=== PATIENT | male | born 1950 | race Two or more races ===

== ENCOUNTER → 2019-02-01 | Outpatient (CLI) | payer MEDICARE, OTHER ==
[~2019-02-01] VITALS: Ht 165.1 cm; Wt 80.0 kg
[~2019-02-01] MED LIST: ARIP5TAB8 PO; ASPI-1182 PO; ATOR40TA28 PO; BUSP15 PO; CARV6 PO; DUTA.5 PO; FAMO20 PO; FERR-89 PO; FLUT16H NASAL; FOLI1 PO; FURO20 PO; GABA-531 PO; INSNOV SQ; INSU100V12 SQ; LIDOCAINE 2% 5 ML JELLY TP ONE; LINA5TAB PO; LOSA25TA41 PO; MACR100 PO; METF-445 PO; MOME17N NASAL; RANI150T7 PO; SPIR25 PO; TRAZ-252 PO
[2019-02-01 12:02] VITALS: BP 108/64
== END | disposition home or self-care (01) ==
LOC: HBOWC 11:16
PROVIDERS: ATTEND Surgery Plastic and Reconstructive Surgery
DX: S31.000A Unspecified open wound of lower back and pelvis without penetration into retroperitoneum, initial encounter (principal); X58.XXXA Exposure to other specified factors, initial encounter; Y93.89 Activity, other specified; Y92.89 Other specified places as the place of occurrence of the external cause; Y99.8 Other external cause status
CPT/HCPCS: 11042; G0463

== ENCOUNTER → 2019-02-09 | Outpatient (CLI) | payer MEDICARE, OTHER ==
[~2019-02-09] MED LIST changes: -LIDOCAINE 2% 5 ML JELLY TP ONE
[2019-02-09 11:10] VITALS: BP 146/62
== END | disposition home or self-care (01) ==
LOC: HBOWC 11:08
PROVIDERS: ATTEND Emergency Medicine
DX: L89.153 Pressure ulcer of sacral region, stage 3 (principal); R32 Unspecified urinary incontinence; G82.20 Paraplegia, unspecified; M62.562 Muscle wasting and atrophy, not elsewhere classified, left lower leg; M62.561 Muscle wasting and atrophy, not elsewhere classified, right lower leg; Z79.82 Long term (current) use of aspirin; Z79.4 Long term (current) use of insulin
CPT/HCPCS: 11042; 84134

== ENCOUNTER → 2019-02-16 | Outpatient (CLI) | payer MEDICARE, OTHER ==
[2019-02-16 11:25] VITALS: BP 144/65
== END | disposition home or self-care (01) ==
LOC: HBOWC 11:12
PROVIDERS: ATTEND Emergency Medicine
DX: S31.000D Unspecified open wound of lower back and pelvis without penetration into retroperitoneum, subsequent encounter (principal); G82.20 Paraplegia, unspecified; Z79.82 Long term (current) use of aspirin; Z79.4 Long term (current) use of insulin; X58.XXXD Exposure to other specified factors, subsequent encounter
CPT/HCPCS: 11042

== ENCOUNTER → 2019-02-22 | Outpatient (CLI) | payer MEDICARE, OTHER ==
[~2019-02-22] MED LIST changes: +LIDOCAINE 2% 5 ML JELLY TP ONE
[2019-02-22 11:17] VITALS: BP 114/50
== END | disposition home or self-care (01) ==
LOC: HBOWC 10:59
PROVIDERS: ATTEND Surgery Plastic and Reconstructive Surgery
DX: S31.000D Unspecified open wound of lower back and pelvis without penetration into retroperitoneum, subsequent encounter (principal); G82.20 Paraplegia, unspecified; Z79.82 Long term (current) use of aspirin; Z79.4 Long term (current) use of insulin; X58.XXXD Exposure to other specified factors, subsequent encounter
CPT/HCPCS: 11043; 11046

== ENCOUNTER → 2019-03-03 | Outpatient (CLI) | payer MEDICARE, OTHER ==
[2019-03-03 11:17] VITALS: BP 118/66
== END | disposition home or self-care (01) ==
LOC: HBOWC 10:23
PROVIDERS: ATTEND Internal Medicine
DX: L97.512 Non-pressure chronic ulcer of other part of right foot with fat layer exposed (principal); L89.153 Pressure ulcer of sacral region, stage 3; G82.20 Paraplegia, unspecified; L89.323 Pressure ulcer of left buttock, stage 3; Z79.82 Long term (current) use of aspirin; Z79.4 Long term (current) use of insulin
CPT/HCPCS: 11042

== ENCOUNTER → 2019-03-10 | Outpatient (CLI) | payer MEDICARE, OTHER ==
[~2019-03-10] MED LIST changes: -LIDOCAINE 2% 5 ML JELLY TP ONE
[2019-03-10 10:20] VITALS: BP 139/70
== END | disposition home or self-care (01) ==
LOC: HBOWC 10:14
PROVIDERS: ATTEND Internal Medicine
DX: E11.622 Type 2 diabetes mellitus with other skin ulcer (principal); L89.153 Pressure ulcer of sacral region, stage 3; L89.323 Pressure ulcer of left buttock, stage 3; L98.412 Non-pressure chronic ulcer of buttock with fat layer exposed; L98.492 Non-pressure chronic ulcer of skin of other sites with fat layer exposed; E11.621 Type 2 diabetes mellitus with foot ulcer; L97.512 Non-pressure chronic ulcer of other part of right foot with fat layer exposed; R32 Unspecified urinary incontinence; M62.562 Muscle wasting and atrophy, not elsewhere classified, left lower leg; M62.561 Muscle wasting and atrophy, not elsewhere classified, right lower leg; G82.20 Paraplegia, unspecified; Z79.82 Long term (current) use of aspirin; Z79.4 Long term (current) use of insulin
CPT/HCPCS: 11042; 11045

== ENCOUNTER → 2019-03-24 | Outpatient (CLI) | payer MEDICARE, OTHER ==
[~2019-03-24] MED LIST changes: +LIDOCAINE 2% 5 ML JELLY TP ONE
[2019-03-24 11:05] VITALS: BP 119/65
== END | disposition home or self-care (01) ==
LOC: HBOWC 10:26
PROVIDERS: ATTEND Internal Medicine
DX: E11.622 Type 2 diabetes mellitus with other skin ulcer (principal); L89.153 Pressure ulcer of sacral region, stage 3; L89.323 Pressure ulcer of left buttock, stage 3; L98.412 Non-pressure chronic ulcer of buttock with fat layer exposed; L98.492 Non-pressure chronic ulcer of skin of other sites with fat layer exposed; E11.621 Type 2 diabetes mellitus with foot ulcer; L97.511 Non-pressure chronic ulcer of other part of right foot limited to breakdown of skin; R32 Unspecified urinary incontinence; L90.9 Atrophic disorder of skin, unspecified; G82.20 Paraplegia, unspecified; Z79.4 Long term (current) use of insulin; Z79.82 Long term (current) use of aspirin
CPT/HCPCS: 11042; 11045

== ENCOUNTER → 2019-03-29 | Outpatient (CLI) | payer MEDICARE, OTHER ==
[~2019-03-29] MED LIST changes: -LIDOCAINE 2% 5 ML JELLY TP ONE
[2019-03-29 12:07] VITALS: BP 138/78
== END | disposition home or self-care (01) ==
LOC: HBOWC 10:56
PROVIDERS: ATTEND Surgery Plastic and Reconstructive Surgery
DX: E11.622 Type 2 diabetes mellitus with other skin ulcer (principal); L89.153 Pressure ulcer of sacral region, stage 3; L89.323 Pressure ulcer of left buttock, stage 3; L98.412 Non-pressure chronic ulcer of buttock with fat layer exposed; L98.492 Non-pressure chronic ulcer of skin of other sites with fat layer exposed; E11.621 Type 2 diabetes mellitus with foot ulcer; L97.511 Non-pressure chronic ulcer of other part of right foot limited to breakdown of skin; R32 Unspecified urinary incontinence; L90.9 Atrophic disorder of skin, unspecified; G82.20 Paraplegia, unspecified; Z79.4 Long term (current) use of insulin; Z79.82 Long term (current) use of aspirin
CPT/HCPCS: 11042; 11045

== ENCOUNTER → 2019-04-05 | Outpatient (CLI) | payer MEDICARE, OTHER ==
[~2019-04-05] MED LIST changes: +LIDOCAINE 4% 50 ML SOLUTION TP ONE
[2019-04-05 11:59] VITALS: BP 133/64
== END | disposition home or self-care (01) ==
LOC: HBOWC 11:06
PROVIDERS: ATTEND Surgery Plastic and Reconstructive Surgery
DX: E11.622 Type 2 diabetes mellitus with other skin ulcer (principal); L89.153 Pressure ulcer of sacral region, stage 3; L89.323 Pressure ulcer of left buttock, stage 3; L98.412 Non-pressure chronic ulcer of buttock with fat layer exposed; L98.492 Non-pressure chronic ulcer of skin of other sites with fat layer exposed; E11.621 Type 2 diabetes mellitus with foot ulcer; L97.511 Non-pressure chronic ulcer of other part of right foot limited to breakdown of skin; R32 Unspecified urinary incontinence; L90.9 Atrophic disorder of skin, unspecified; G82.20 Paraplegia, unspecified; Z79.4 Long term (current) use of insulin; Z79.82 Long term (current) use of aspirin
CPT/HCPCS: 11042; 11045; 93970

== ENCOUNTER → 2019-05-03 | Outpatient (CLI) | payer MEDICARE, OTHER ==
[2019-05-03 10:39] VITALS: BP 130/70
== END | disposition home or self-care (01) ==
LOC: HBOWC 09:36
PROVIDERS: ATTEND Surgery Plastic and Reconstructive Surgery
DX: T86.828 Other complications of skin graft (allograft) (autograft) (principal); E11.622 Type 2 diabetes mellitus with other skin ulcer; L89.153 Pressure ulcer of sacral region, stage 3; L98.495 Non-pressure chronic ulcer of skin of other sites with muscle involvement without evidence of necrosis; L89.323 Pressure ulcer of left buttock, stage 3; L98.412 Non-pressure chronic ulcer of buttock with fat layer exposed; E11.621 Type 2 diabetes mellitus with foot ulcer; L97.511 Non-pressure chronic ulcer of other part of right foot limited to breakdown of skin; S91.201D Unspecified open wound of right great toe with damage to nail, subsequent encounter; M62.562 Muscle wasting and atrophy, not elsewhere classified, left lower leg; G82.20 Paraplegia, unspecified; M62.561 Muscle wasting and atrophy, not elsewhere classified, right lower leg; I25.10 Atherosclerotic heart disease of native coronary artery without angina pectoris; E78.00 Pure hypercholesterolemia, unspecified; M19.90 Unspecified osteoarthritis, unspecified site; E66.9 Obesity, unspecified; F32.9 Major depressive disorder, single episode, unspecified; F11.20 Opioid dependence, uncomplicated; Z68.29 Body mass index [BMI] 29.0-29.9, adult; Z95.1 Presence of aortocoronary bypass graft; Z79.4 Long term (current) use of insulin; Z79.82 Long term (current) use of aspirin; X58.XXXD Exposure to other specified factors, subsequent encounter; Y83.2 Surgical operation with anastomosis, bypass or graft as the cause of abnormal reaction of the patient, or of later complication, without mention of misadventure at the time of the procedure
CPT/HCPCS: 11042; 11043

== ENCOUNTER → 2019-05-10 | Outpatient (CLI) | payer MEDICARE, OTHER ==
[~2019-05-10] MED LIST changes: +ACET-2247 PO; +ACET-2247 PR; +ACET650S27 PR; +AMLO10TA7 PO; -ARIP5TAB8 PO; +ASCO500 PO; +ATOR20TA86 PO; +BACL10TA PO; +BACTDSB PO; +BISA10SU11 PR; -FAMO20 PO; +HEPA500018 SQ; +INSLAN SQ; -INSNOV SQ; -INSU100V12 SQ; -LIDOCAINE 4% 50 ML SOLUTION TP ONE; -MACR100 PO; +MOM30 PO; -MOME17N NASAL; +MORP15 PO; +MULT-248 PO; +NITR100C11 PO; +NITR25OR3 PO; +OXYC-530 PO; +TAMS-1 PO; +ZINC220 PO
[2019-05-10 09:00] VITALS: BP 138/64
== END | disposition home or self-care (01) ==
LOC: HBOWC 08:35
PROVIDERS: ATTEND Surgery Plastic and Reconstructive Surgery
DX: T86.828 Other complications of skin graft (allograft) (autograft) (principal); E11.622 Type 2 diabetes mellitus with other skin ulcer; L89.153 Pressure ulcer of sacral region, stage 3; L98.495 Non-pressure chronic ulcer of skin of other sites with muscle involvement without evidence of necrosis; L89.323 Pressure ulcer of left buttock, stage 3; L98.412 Non-pressure chronic ulcer of buttock with fat layer exposed; E11.621 Type 2 diabetes mellitus with foot ulcer; L97.511 Non-pressure chronic ulcer of other part of right foot limited to breakdown of skin; S91.201D Unspecified open wound of right great toe with damage to nail, subsequent encounter; G82.20 Paraplegia, unspecified; M62.561 Muscle wasting and atrophy, not elsewhere classified, right lower leg; I25.10 Atherosclerotic heart disease of native coronary artery without angina pectoris; E78.00 Pure hypercholesterolemia, unspecified; M19.90 Unspecified osteoarthritis, unspecified site; E66.9 Obesity, unspecified; F32.9 Major depressive disorder, single episode, unspecified; F11.20 Opioid dependence, uncomplicated; Z68.29 Body mass index [BMI] 29.0-29.9, adult; Z95.1 Presence of aortocoronary bypass graft; Z79.4 Long term (current) use of insulin; Z79.82 Long term (current) use of aspirin; X58.XXXD Exposure to other specified factors, subsequent encounter; Y83.2 Surgical operation with anastomosis, bypass or graft as the cause of abnormal reaction of the patient, or of later complication, without mention of misadventure at the time of the procedure
CPT/HCPCS: 11043

== ENCOUNTER 2019-05-17 10:25 | Inpatient (IN) | payer MEDICARE, OTHER ==
[~2019-05-17] VITALS: Ht 165.1 cm; Wt 76.0 kg
[~2019-05-17 10:25] MED LIST changes: -ACET650S27 PR; -AMLO10TA7 PO; -ASPI-1182 PO; -ATOR40TA28 PO; -BACL10TA PO; -BUSP15 PO; -DUTA.5 PO; -FERR-89 PO; -FLUT16H NASAL; -FOLI1 PO; -FURO20 PO; -GABA-531 PO; -LINA5TAB PO; -LOSA25TA41 PO; -METF-445 PO; -NITR100C11 PO; -NITR25OR3 PO; -RANI150T7 PO; -SPIR25 PO; -TAMS-1 PO
[2019-05-17 10:57] LABS: BASOPHILS % (AUTO) 0.7 % (0.0-2.0); EOSINOPHILS % (AUTO) 4.3 % (1.0-6.0); HEMATOCRIT 33.7 % (41-53); HEMOGLOBIN 10.9 g/dL (13.5-17.5); LYMPHOCYTES % (AUTO) 22.7 % (22.0-44.0); MEAN CORPUSCULAR HEMOGLOBIN 28.1 pg (26.0-34.0); MEAN CORPUSCULAR HGB CONC 32.2 G/dL (31.0-37.0); MEAN CORPUSCULAR VOLUME 87 fL (80-100); MONOCYTES % (AUTO) 10.9 % (2.0-9.0); NEUTROPHILS # (AUTO) 5.4 K/uL (1.8-7.7); NEUTROPHILS % (AUTO) 61.4 % (40.0-70.0); PLATELET COUNT (AUTO) 320 K/uL (150-450); RED BLOOD CELL COUNT(AUTO) 3.86 MIL/uL (4.50-5.90); RED CELL DISTRIBUTION WIDTH 16.2 % (11.5-14.5)
[2019-05-17] MEDS ORDERED: RINGERS SOLUTION,LACTATED 1,000 ML IV ONE (11:00)
[2019-05-17 11:08] LABS: PROTHROMBIN TIME 10.3 SEC (9.4-11.6)
[2019-05-17] MEDS ORDERED: TAMS-1 PO (11:11)
[2019-05-17] MEDS ORDERED: LOSA25TA41 PO (11:14)
[2019-05-17] MEDS ORDERED: SPIR25 PO (11:14)
[2019-05-17] MEDS ORDERED: AMLO10TA7 PO (11:14)
[2019-05-17] MEDS ORDERED: GABA-531 PO (11:14)
[2019-05-17] MEDS ORDERED: FURO20 PO (11:14)
[2019-05-17] MEDS ORDERED: ASPI-1182 PO (11:14)
[2019-05-17] MEDS ORDERED: METF-445 PO (11:14)
[2019-05-17 11:22] LABS: ANION GAP 9 mmol/L (8-16); CALCIUM, TOTAL 9.4 mg/dL (8.8-10.5); CARBON DIOXIDE 28 mmol/L (22-29); CHLORIDE 100 mmol/L (98-107); CREATININE 0.67 mg/dL (0.60-1.30); GLOMERULAR FILTR. RATE CALC > 60 mL/min (>60); GLUCOSE,RANDOM 99 mg/dL (70-110); POTASSIUM 4.4 mmol/L (3.5-5.1); SODIUM SERUM 137 mmol/L (136-145); UREA NITROGEN, BLOOD 21 mg/dL (7-18)
[2019-05-17] MEDS ORDERED: NITR25OR3 PO (11:25)
[2019-05-17] MEDS ORDERED: DUTA.5 PO (11:25)
[2019-05-17] MEDS ORDERED: FOLI1 PO (11:25)
[2019-05-17] MEDS ORDERED: LINA5TAB PO (11:25)
[2019-05-17] MEDS ORDERED: FERR-89 PO (11:25)
[2019-05-17] MEDS ORDERED: RANI150T7 PO (11:25)
[2019-05-17] MEDS ORDERED: FLUT16H NASAL (11:25)
[2019-05-17] MEDS ORDERED: BACL10TA PO (11:25)
[2019-05-17] MEDS ORDERED: BUSP15 PO (11:25)
[2019-05-17 11:26] LABS: ALANINE AMINOTRANSFERASE 16 U/L (12-78); ALBUMIN 2.8 g/dL (3.4-5.0); ALKALINE PHOSPHATASE 128 U/L (46-116); ASPARTATE AMINOTRANSFERASE 17 U/L (15-37); BILIRUBIN,TOTAL 0.3 mg/dL (0.1-1.0); TOTAL PROTEIN, SERUM 7.2 g/dL (6.4-8.2)
[2019-05-17] MEDS ORDERED: NITR100C11 PO (14:04)
[2019-05-17] MEDS ORDERED: ACET650S27 PR (14:04)
[2019-05-17] MEDS ORDERED: ATOR40TA28 PO (14:04)
[2019-05-17] MEDS ORDERED: FentaNYL CITRATE-PF 100 MCG/2 ML VIAL IVP PRN (14:45)
[2019-05-17] MEDS ORDERED: HYDROmorphone 2 MG/ML SYRINGE IVP PRN (14:45)
[2019-05-17 17:41] VITALS: BP 134/74
[2019-05-17] MEDS: OxyCODONE HCL/ACETAMINOPHEN 5-325 MG TABLET PO SCH (18:55)
[2019-05-17 19:55] VITALS: BP 132/72
[2019-05-17] MEDS: MORPHINE SULFATE 2 MG/ML SYRINGE IVP PRN (20:40)
[2019-05-17 22:14] LABS: BASOPHILS % (AUTO) 0.7 % (0.0-2.0); EOSINOPHILS % (AUTO) 0.8 % (1.0-6.0); HEMATOCRIT 28.3 % (41-53); HEMOGLOBIN 9.1 g/dL (13.5-17.5); LYMPHOCYTES # (AUTO) 1.5 K/uL (1.0-4.8); MEAN CORPUSCULAR HEMOGLOBIN 28.2 pg (26.0-34.0); MEAN CORPUSCULAR HGB CONC 32.1 G/dL (31.0-37.0); MEAN CORPUSCULAR VOLUME 88 fL (80-100); MONOCYTES # (AUTO) 0.7 K/uL (0.1-1.0); MONOCYTES % (AUTO) 8.8 % (2.0-9.0); NEUTROPHILS # (AUTO) 5.6 K/uL (1.8-7.7); NEUTROPHILS % (AUTO) 70.7 % (40.0-70.0); PLATELET COUNT (AUTO) 285 K/uL (150-450); RED BLOOD CELL COUNT(AUTO) 3.22 MIL/uL (4.50-5.90); RED CELL DISTRIBUTION WIDTH 16.6 % (11.5-14.5)
[2019-05-17] MEDS ORDERED: SODIUM CHLORIDE 0.9% 250 ML IV ONE (23:18)
[2019-05-17] MEDS: CeFAZolin 2 GM/DEXTROSE 50 ML IV SCH (23:26)
[2019-05-17 23:45] VITALS: BP 129/65
[2019-05-18] MEDS: OxyCODONE HCL/ACETAMINOPHEN 5-325 MG TABLET PO SCH ×4 (00:09→18:28)
[2019-05-18] MEDS: MORPHINE SULFATE 2 MG/ML SYRINGE IVP PRN ×9 (00:48→20:48)
[2019-05-18 04:00] VITALS: BP 127/82
[2019-05-18] MEDS ORDERED: ROCURONIUM BROMIDE 10 MG/ML 5 ML VIAL IVP ONE (05:51)
[2019-05-18] MEDS ORDERED: PROPOFOL 1% 20 ML VIAL IVP ONE (05:51)
[2019-05-18] MEDS ORDERED: LIDOCAINE/PF 2% 5 ML VIAL IM ONE (05:51)
[2019-05-18] MEDS ORDERED: FentaNYL CITRATE-PF 100 MCG/2 ML VIAL IVP ONE (05:51)
[2019-05-18] MEDS ORDERED: ONDANSETRON HCL 4 MG/2 ML VIAL IVP ONE (05:51)
[2019-05-18] MEDS: CeFAZolin 2 GM/DEXTROSE 50 ML IV SCH (05:51)
[2019-05-18] MEDS ORDERED: CefoTEtan DISODIUM 1 GM/VIAL IVP ONE (05:51)
[2019-05-18 06:11] LABS: BASOPHILS % (AUTO) 0.4 % (0.0-2.0); EOSINOPHILS % (AUTO) 2.2 % (1.0-6.0); HEMATOCRIT 27.7 % (41-53); LYMPHOCYTES # (AUTO) 1.8 K/uL (1.0-4.8); LYMPHOCYTES % (AUTO) 18.2 % (22.0-44.0); MEAN CORPUSCULAR HEMOGLOBIN 28.3 pg (26.0-34.0); MEAN CORPUSCULAR HGB CONC 32.5 G/dL (31.0-37.0); MEAN CORPUSCULAR VOLUME 87 fL (80-100); MONOCYTES % (AUTO) 10.4 % (2.0-9.0); NEUTROPHILS # (AUTO) 6.9 K/uL (1.8-7.7); NEUTROPHILS % (AUTO) 68.8 % (40.0-70.0); PLATELET COUNT (AUTO) 287 K/uL (150-450); RED BLOOD CELL COUNT(AUTO) 3.18 MIL/uL (4.50-5.90); RED CELL DISTRIBUTION WIDTH 16.7 % (11.5-14.5)
[2019-05-18] MEDS: OXYGEN THERAPY IH SCH (08:00)
[2019-05-18 09:23] VITALS: BP 136/67
[2019-05-18 11:42] VITALS: BP 158/75
[2019-05-18 16:21] VITALS: BP 137/73
[2019-05-18] MEDS ORDERED: MAGNESIUM HYDROXIDE SUSPENSION 30 ML UDCUP PO PRN (19:45)
[2019-05-18] MEDS ORDERED: BISACODYL 10 MG RECTAL RECTAL SUPPOSITORY PR PRN (19:45)
[2019-05-18 20:02] VITALS: BP 146/82
[2019-05-18] MEDS: FLUTICASONE PROPIONATE 50 MCG/SPRAY 16 GM NASAL SPRAY NASAL SCH (20:16)
[2019-05-18] MEDS: CARVEDILOL 6.25 MG TABLET PO SCH (20:16)
[2019-05-18] MEDS: BusPIRone HCL 15 MG TABLET PO SCH (20:16)
[2019-05-18] MEDS: ATORVASTATIN CALCIUM 40 MG TABLET PO SCH (20:16)
[2019-05-18] MEDS: BACLOFEN 10 MG TABLET PO SCH (20:16)
[2019-05-18] MEDS: HEPARIN SODIUM,PORCINE 5,000 UNITS/ML VIAL SQ SCH (20:17)
[2019-05-18] MEDS ORDERED: DEXTROSE 50%-WATER 25 GM/50 ML SYRINGE IVP PRN (20:30)
[2019-05-18] MEDS: INSULIN GLARGINE,HUM.REC.ANLOG 100 UNITS/ML SQ SCH (20:34)
[2019-05-18] MEDS: INSULIN LISPRO 100 UNITS/ML SQ PRN (20:35)
[2019-05-18] MEDS: ZINC SULFATE 220 MG CAPSULE PO SCH (20:36)
[2019-05-18] MEDS: MORPHINE SULFATE 15 MG ER TABLET PO SCH (22:33)
[2019-05-18] MEDS: TraZODone HCL 50 MG TABLET PO PRN (22:33)
[2019-05-18 22:39] VITALS: BP 127/63
[2019-05-19] MEDS: PIPERACILLIN/TAZO 3.375 GM/D5W 50 ML IV SCH ×4 (01:09→18:24)
[2019-05-19] MEDS: INSULIN LISPRO 100 UNITS/ML SQ PRN ×4 (05:43→21:13)
[2019-05-19 05:52] VITALS: BP 147/79
[2019-05-19] MEDS: OxyCODONE HCL/ACETAMINOPHEN 5-325 MG TABLET PO SCH ×4 (06:00→17:54)
[2019-05-19] MEDS ORDERED: SODIUM CHLORIDE 0.9% 250 ML IV ONE (06:31)
[2019-05-19 07:28] VITALS: BP 133/65
[2019-05-19] MEDS: OXYGEN THERAPY IH SCH (08:00)
[2019-05-19] MEDS ORDERED: SPIRONOLACTONE 25 MG TABLET PO SCH (09:00)
[2019-05-19] MEDS ORDERED: SODIUM CHLORIDE 0.9% 500 ML IV ONE (09:05)
[2019-05-19] MEDS: FERROUS SULFATE 325 MG EC TABLET PO SCH ×2 (09:10→17:53)
[2019-05-19] MEDS: TAMSULOSIN HCL 0.4 MG CAPSULE PO SCH (09:11)
[2019-05-19] MEDS: MULTIVITAMINS WITH MINERALS, THERAPEUTIC TABLET PO SCH (09:11)
[2019-05-19] MEDS: ASPIRIN 81 MG EC TABLET PO SCH (09:11)
[2019-05-19] MEDS: AmLODIPine BESYLATE 10 MG TABLET PO SCH (09:11)
[2019-05-19] MEDS: FUROSEMIDE 20 MG TABLET PO SCH (09:12)
[2019-05-19] MEDS: LOSARTAN POTASSIUM 25 MG TABLET PO SCH (09:12)
[2019-05-19] MEDS: HEPARIN SODIUM,PORCINE 5,000 UNITS/ML VIAL SQ SCH ×2 (09:12→20:43)
[2019-05-19] MEDS: GABAPENTIN 300 MG CAPSULE PO SCH (09:12)
[2019-05-19] MEDS: ASCORBIC ACID 500 MG TABLET PO SCH (09:13)
[2019-05-19] MEDS: CARVEDILOL 6.25 MG TABLET PO SCH ×2 (09:13→20:43)
[2019-05-19] MEDS: DUTASTERIDE 0.5 MG CAPSULE PO SCH (09:13)
[2019-05-19] MEDS: BACLOFEN 10 MG TABLET PO SCH ×2 (09:13→20:43)
[2019-05-19] MEDS: ZINC SULFATE 220 MG CAPSULE PO SCH ×2 (09:13→20:43)
[2019-05-19] MEDS: BusPIRone HCL 15 MG TABLET PO SCH ×2 (09:14→20:43)
[2019-05-19] MEDS: RANITIDINE HCL 150 MG TABLET PO SCH (09:14)
[2019-05-19] MEDS: LinaGLIPtin 5 MG TABLET PO SCH (09:14)
[2019-05-19] MEDS: FOLIC ACID 1 MG TABLET PO SCH (09:15)
[2019-05-19] MEDS: NITROFURANTOIN MACROCRYSTAL 100 MG CAPSULE PO SCH (09:15)
[2019-05-19] MEDS: FLUTICASONE PROPIONATE 50 MCG/SPRAY 16 GM NASAL SPRAY NASAL SCH ×2 (09:21→20:43)
[2019-05-19] MEDS: INSULIN GLARGINE,HUM.REC.ANLOG 100 UNITS/ML SQ SCH ×2 (09:36→21:13)
[2019-05-19] MEDS: MORPHINE SULFATE 15 MG ER TABLET PO SCH ×2 (09:53→20:43)
[2019-05-19 11:31] VITALS: BP 130/69
[2019-05-19] MEDS: MORPHINE SULFATE 2 MG/ML SYRINGE IVP PRN ×2 (13:19→15:38)
[2019-05-19 15:22] VITALS: BP 130/55
[2019-05-19 19:30] VITALS: BP 129/55
[2019-05-19] MEDS: ATORVASTATIN CALCIUM 40 MG TABLET PO SCH (20:43)
[2019-05-19] MEDS: TraZODone HCL 50 MG TABLET PO PRN (22:23)
[2019-05-19 23:35] VITALS: BP 126/58
[2019-05-20] MEDS: OxyCODONE HCL/ACETAMINOPHEN 5-325 MG TABLET PO SCH ×6 (00:19→23:01)
[2019-05-20] MEDS: PIPERACILLIN/TAZO 3.375 GM/D5W 50 ML IV SCH ×4 (00:19→19:42)
[2019-05-20 04:00] VITALS: BP 124/62
[2019-05-20] MEDS: INSULIN LISPRO 100 UNITS/ML SQ PRN ×4 (06:05→21:48)
[2019-05-20] MEDS: MORPHINE SULFATE 2 MG/ML SYRINGE IVP PRN ×4 (06:13→19:46)
[2019-05-20] MEDS ORDERED: DEXTROSE 50%-WATER 25 GM/50 ML SYRINGE IVP PRN (07:30)
[2019-05-20 07:35] VITALS: BP 140/83
[2019-05-20 07:51] LABS: EOSINOPHILS % (AUTO) 9.3 % (1.0-6.0); HEMATOCRIT 26.9 % (41-53); HEMOGLOBIN 8.7 g/dL (13.5-17.5); LYMPHOCYTES # (AUTO) 1.9 K/uL (1.0-4.8); MEAN CORPUSCULAR HEMOGLOBIN 28.3 pg (26.0-34.0); MEAN CORPUSCULAR HGB CONC 32.4 G/dL (31.0-37.0); MEAN CORPUSCULAR VOLUME 88 fL (80-100); MONOCYTES # (AUTO) 0.8 K/uL (0.1-1.0); MONOCYTES % (AUTO) 10.6 % (2.0-9.0); NEUTROPHILS # (AUTO) 4.1 K/uL (1.8-7.7); NEUTROPHILS % (AUTO) 54.1 % (40.0-70.0); PLATELET COUNT (AUTO) 267 K/uL (150-450); RED BLOOD CELL COUNT(AUTO) 3.08 MIL/uL (4.50-5.90); RED CELL DISTRIBUTION WIDTH 16.2 % (11.5-14.5)
[2019-05-20 08:05] LABS: ALANINE AMINOTRANSFERASE 8 U/L (12-78); ALBUMIN 2.4 g/dL (3.4-5.0); ALKALINE PHOSPHATASE 111 U/L (46-116); ANION GAP 6 mmol/L (8-16); ASPARTATE AMINOTRANSFERASE 12 U/L (15-37); BILIRUBIN,TOTAL 0.2 mg/dL (0.1-1.0); CALCIUM, TOTAL 8.9 mg/dL (8.8-10.5); CARBON DIOXIDE 29 mmol/L (22-29); CHLORIDE 101 mmol/L (98-107); CREATININE 0.81 mg/dL (0.60-1.30); GLOMERULAR FILTR. RATE CALC > 60 mL/min (>60); GLUCOSE,RANDOM 157 mg/dL (70-110); POTASSIUM 3.9 mmol/L (3.5-5.1); SODIUM SERUM 136 mmol/L (136-145); TOTAL PROTEIN, SERUM 6.5 g/dL (6.4-8.2); UREA NITROGEN, BLOOD 15 mg/dL (7-18)
[2019-05-20] MEDS: INSULIN GLARGINE,HUM.REC.ANLOG 100 UNITS/ML SQ SCH ×2 (10:10→21:48)
[2019-05-20] MEDS: MULTIVITAMINS WITH MINERALS, THERAPEUTIC TABLET PO SCH (10:11)
[2019-05-20] MEDS: FUROSEMIDE 20 MG TABLET PO SCH (10:11)
[2019-05-20] MEDS: BusPIRone HCL 15 MG TABLET PO SCH ×2 (10:11→19:50)
[2019-05-20] MEDS: DUTASTERIDE 0.5 MG CAPSULE PO SCH (10:11)
[2019-05-20] MEDS: MORPHINE SULFATE 15 MG ER TABLET PO SCH ×3 (10:11→21:50)
[2019-05-20] MEDS: FOLIC ACID 1 MG TABLET PO SCH (10:11)
[2019-05-20] MEDS: ZINC SULFATE 220 MG CAPSULE PO SCH ×2 (10:11→19:50)
[2019-05-20] MEDS: RANITIDINE HCL 150 MG TABLET PO SCH (10:11)
[2019-05-20] MEDS: GABAPENTIN 300 MG CAPSULE PO SCH (10:11)
[2019-05-20] MEDS: BACLOFEN 10 MG TABLET PO SCH ×2 (10:11→19:50)
[2019-05-20] MEDS: HEPARIN SODIUM,PORCINE 5,000 UNITS/ML VIAL SQ SCH ×2 (10:11→19:50)
[2019-05-20] MEDS: ASCORBIC ACID 500 MG TABLET PO SCH (10:11)
[2019-05-20] MEDS: ASPIRIN 81 MG EC TABLET PO SCH (10:11)
[2019-05-20] MEDS: LOSARTAN POTASSIUM 25 MG TABLET PO SCH (10:12)
[2019-05-20] MEDS: TAMSULOSIN HCL 0.4 MG CAPSULE PO SCH (10:12)
[2019-05-20] MEDS: LinaGLIPtin 5 MG TABLET PO SCH (10:12)
[2019-05-20] MEDS: FERROUS SULFATE 325 MG EC TABLET PO SCH ×2 (10:12→17:46)
[2019-05-20] MEDS: AmLODIPine BESYLATE 10 MG TABLET PO SCH (10:12)
[2019-05-20] MEDS: CARVEDILOL 6.25 MG TABLET PO SCH ×3 (10:12→19:56)
[2019-05-20] MEDS: NITROFURANTOIN MACROCRYSTAL 100 MG CAPSULE PO SCH (10:14)
[2019-05-20] MEDS: FLUTICASONE PROPIONATE 50 MCG/SPRAY 16 GM NASAL SPRAY NASAL SCH ×2 (10:16→19:50)
[2019-05-20 11:54] VITALS: BP 114/61
[2019-05-20 15:31] VITALS: BP 112/55
[2019-05-20 19:48] VITALS: BP 107/66
[2019-05-20] MEDS: ATORVASTATIN CALCIUM 40 MG TABLET PO SCH (19:50)
[2019-05-20] MEDS: TraZODone HCL 50 MG TABLET PO PRN (21:59)
[2019-05-21] VITALS (13 sets, daily range): BP systolic 111–174; BP diastolic 62–80
[2019-05-21] MEDS: PIPERACILLIN/TAZO 3.375 GM/D5W 50 ML IV SCH ×3 (01:30→13:00)
[2019-05-21 02:05] LABS: BASOPHILS % (AUTO) 0.7 % (0.0-2.0); EOSINOPHILS % (AUTO) 4.8 % (1.0-6.0); HEMATOCRIT 25.2 % (41-53); HEMOGLOBIN 8.1 g/dL (13.5-17.5); LYMPHOCYTES # (AUTO) 1.6 K/uL (1.0-4.8); MEAN CORPUSCULAR HEMOGLOBIN 28.2 pg (26.0-34.0); MEAN CORPUSCULAR HGB CONC 32.3 G/dL (31.0-37.0); MEAN CORPUSCULAR VOLUME 87 fL (80-100); MONOCYTES # (AUTO) 0.9 K/uL (0.1-1.0); MONOCYTES % (AUTO) 9.7 % (2.0-9.0); NEUTROPHILS # (AUTO) 6.5 K/uL (1.8-7.7); NEUTROPHILS % (AUTO) 67.8 % (40.0-70.0); PLATELET COUNT (AUTO) 297 K/uL (150-450); RED BLOOD CELL COUNT(AUTO) 2.88 MIL/uL (4.50-5.90); RED CELL DISTRIBUTION WIDTH 16.1 % (11.5-14.5)
[2019-05-21 02:13] LABS: ANION GAP 7 mmol/L (8-16); CALCIUM, TOTAL 8.4 mg/dL (8.8-10.5); CARBON DIOXIDE 28 mmol/L (22-29); CHLORIDE 100 mmol/L (98-107); CREATININE 0.96 mg/dL (0.60-1.30); GLOMERULAR FILTR. RATE CALC > 60 mL/min (>60); GLUCOSE,RANDOM 319 mg/dL (70-110); POTASSIUM 4.1 mmol/L (3.5-5.1); SODIUM SERUM 135 mmol/L (136-145); UREA NITROGEN, BLOOD 17 mg/dL (7-18)
[2019-05-21] MEDS ORDERED: SODIUM CHLORIDE 0.9% 250 ML IV ONE (03:50)
[2019-05-21] MEDS: MORPHINE SULFATE 2 MG/ML SYRINGE IVP PRN (04:38)
[2019-05-21] MEDS: OxyCODONE HCL/ACETAMINOPHEN 5-325 MG TABLET PO SCH ×4 (05:00→17:39)
[2019-05-21] MEDS: INSULIN LISPRO 100 UNITS/ML SQ PRN ×4 (06:15→20:46)
[2019-05-21] MEDS: OXYGEN THERAPY IH SCH ×2 (08:00→20:41)
[2019-05-21] MEDS: FLUTICASONE PROPIONATE 50 MCG/SPRAY 16 GM NASAL SPRAY NASAL SCH ×2 (08:09→20:33)
[2019-05-21] MEDS: HEPARIN SODIUM,PORCINE 5,000 UNITS/ML VIAL SQ SCH ×2 (08:10→20:39)
[2019-05-21] MEDS: BACLOFEN 10 MG TABLET PO SCH ×2 (08:10→20:39)
[2019-05-21] MEDS: TAMSULOSIN HCL 0.4 MG CAPSULE PO SCH (08:10)
[2019-05-21] MEDS: GABAPENTIN 300 MG CAPSULE PO SCH (08:10)
[2019-05-21] MEDS: NITROFURANTOIN MACROCRYSTAL 100 MG CAPSULE PO SCH (08:10)
[2019-05-21] MEDS: LOSARTAN POTASSIUM 25 MG TABLET PO SCH (08:11)
[2019-05-21] MEDS: MULTIVITAMINS WITH MINERALS, THERAPEUTIC TABLET PO SCH (08:11)
[2019-05-21] MEDS: CARVEDILOL 6.25 MG TABLET PO SCH ×2 (08:11→20:37)
[2019-05-21] MEDS: FERROUS SULFATE 325 MG EC TABLET PO SCH ×2 (08:11→17:34)
[2019-05-21] MEDS: AmLODIPine BESYLATE 10 MG TABLET PO SCH (08:11)
[2019-05-21] MEDS: ASPIRIN 81 MG EC TABLET PO SCH (08:11)
[2019-05-21] MEDS: RANITIDINE HCL 150 MG TABLET PO SCH (08:11)
[2019-05-21] MEDS: FUROSEMIDE 20 MG TABLET PO SCH (08:11)
[2019-05-21] MEDS: LinaGLIPtin 5 MG TABLET PO SCH (08:12)
[2019-05-21] MEDS: FOLIC ACID 1 MG TABLET PO SCH (08:12)
[2019-05-21] MEDS: ZINC SULFATE 220 MG CAPSULE PO SCH ×2 (08:12→20:37)
[2019-05-21] MEDS: DUTASTERIDE 0.5 MG CAPSULE PO SCH (08:12)
[2019-05-21] MEDS: ASCORBIC ACID 500 MG TABLET PO SCH (08:12)
[2019-05-21] MEDS: MORPHINE SULFATE 15 MG ER TABLET PO SCH ×2 (08:12→20:35)
[2019-05-21] MEDS: BusPIRone HCL 15 MG TABLET PO SCH ×2 (08:13→20:37)
[2019-05-21] MEDS: INSULIN GLARGINE,HUM.REC.ANLOG 100 UNITS/ML SQ SCH ×2 (08:20→20:44)
[2019-05-21 14:18] LABS: BASOPHILS % (AUTO) 0.7 % (0.0-2.0); EOSINOPHILS % (AUTO) 3.5 % (1.0-6.0); HEMATOCRIT 31.8 % (41-53); HEMOGLOBIN 10.4 g/dL (13.5-17.5); LYMPHOCYTES # (AUTO) 1.8 K/uL (1.0-4.8); LYMPHOCYTES % (AUTO) 18.8 % (22.0-44.0); MEAN CORPUSCULAR HEMOGLOBIN 28.4 pg (26.0-34.0); MEAN CORPUSCULAR HGB CONC 32.7 G/dL (31.0-37.0); MEAN CORPUSCULAR VOLUME 87 fL (80-100); MONOCYTES # (AUTO) 0.8 K/uL (0.1-1.0); MONOCYTES % (AUTO) 8.9 % (2.0-9.0); NEUTROPHILS # (AUTO) 6.4 K/uL (1.8-7.7); NEUTROPHILS % (AUTO) 68.1 % (40.0-70.0); PLATELET COUNT (AUTO) 318 K/uL (150-450); RED BLOOD CELL COUNT(AUTO) 3.65 MIL/uL (4.50-5.90); RED CELL DISTRIBUTION WIDTH 16.1 % (11.5-14.5)
[2019-05-21] MEDS: OxyCODONE HCL/ACETAMINOPHEN 5-325 MG TABLET PO PRN (16:05)
[2019-05-21] MEDS: ATORVASTATIN CALCIUM 40 MG TABLET PO SCH (20:34)
[2019-05-22] MEDS: OxyCODONE HCL/ACETAMINOPHEN 5-325 MG TABLET PO SCH ×4 (00:16→17:38)
[2019-05-22] MEDS: TraZODone HCL 50 MG TABLET PO PRN (00:23)
[2019-05-22 04:40] VITALS: BP 112/64
[2019-05-22] MEDS: INSULIN LISPRO 100 UNITS/ML SQ PRN ×4 (06:07→20:18)
[2019-05-22 07:34] VITALS: BP 138/75
[2019-05-22] MEDS: OXYGEN THERAPY IH SCH (08:00)
[2019-05-22] MEDS: ZINC SULFATE 220 MG CAPSULE PO SCH ×2 (08:59→20:08)
[2019-05-22] MEDS: HEPARIN SODIUM,PORCINE 5,000 UNITS/ML VIAL SQ SCH ×2 (08:59→20:08)
[2019-05-22] MEDS: RANITIDINE HCL 150 MG TABLET PO SCH (08:59)
[2019-05-22] MEDS: NITROFURANTOIN MACROCRYSTAL 100 MG CAPSULE PO SCH (08:59)
[2019-05-22] MEDS: FOLIC ACID 1 MG TABLET PO SCH (08:59)
[2019-05-22] MEDS: BusPIRone HCL 15 MG TABLET PO SCH ×2 (09:00→20:08)
[2019-05-22] MEDS: MULTIVITAMINS WITH MINERALS, THERAPEUTIC TABLET PO SCH (09:00)
[2019-05-22] MEDS: AmLODIPine BESYLATE 10 MG TABLET PO SCH (09:00)
[2019-05-22] MEDS: ASCORBIC ACID 500 MG TABLET PO SCH (09:00)
[2019-05-22] MEDS: LinaGLIPtin 5 MG TABLET PO SCH (09:00)
[2019-05-22] MEDS: FLUTICASONE PROPIONATE 50 MCG/SPRAY 16 GM NASAL SPRAY NASAL SCH ×2 (09:00→20:08)
[2019-05-22] MEDS: MORPHINE SULFATE 15 MG ER TABLET PO SCH ×2 (09:01→20:09)
[2019-05-22] MEDS: GABAPENTIN 300 MG CAPSULE PO SCH (09:01)
[2019-05-22] MEDS: ASPIRIN 81 MG EC TABLET PO SCH (09:01)
[2019-05-22] MEDS: FERROUS SULFATE 325 MG EC TABLET PO SCH ×2 (09:01→17:38)
[2019-05-22] MEDS: CARVEDILOL 6.25 MG TABLET PO SCH ×2 (09:01→20:09)
[2019-05-22] MEDS: TAMSULOSIN HCL 0.4 MG CAPSULE PO SCH (09:02)
[2019-05-22] MEDS: BACLOFEN 10 MG TABLET PO SCH ×2 (09:02→20:08)
[2019-05-22] MEDS: LOSARTAN POTASSIUM 25 MG TABLET PO SCH (09:02)
[2019-05-22] MEDS: FUROSEMIDE 20 MG TABLET PO SCH (09:02)
[2019-05-22] MEDS: DUTASTERIDE 0.5 MG CAPSULE PO SCH (09:03)
[2019-05-22] MEDS: INSULIN GLARGINE,HUM.REC.ANLOG 100 UNITS/ML SQ SCH ×2 (09:16→20:17)
[2019-05-22 11:34] VITALS: BP 125/57
[2019-05-22] MEDS: OxyCODONE HCL/ACETAMINOPHEN 5-325 MG TABLET PO PRN (14:58)
[2019-05-22 15:25] VITALS: BP 123/67
[2019-05-22] MEDS: ATORVASTATIN CALCIUM 40 MG TABLET PO SCH (20:08)
[2019-05-22 20:10] VITALS: BP 102/57
[2019-05-23] VITALS: BP 119/68
[2019-05-23 05:20] VITALS: BP 120/68
[2019-05-23] MEDS: OxyCODONE HCL/ACETAMINOPHEN 5-325 MG TABLET PO SCH ×4 (05:24→17:54)
[2019-05-23] MEDS: INSULIN LISPRO 100 UNITS/ML SQ PRN ×3 (06:30→17:53)
[2019-05-23 07:54] VITALS: BP 100/62
[2019-05-23] MEDS: LOSARTAN POTASSIUM 25 MG TABLET PO SCH ×2 (09:00→09:37)
[2019-05-23] MEDS: FUROSEMIDE 20 MG TABLET PO SCH ×2 (09:00→09:37)
[2019-05-23] MEDS: CARVEDILOL 6.25 MG TABLET PO SCH ×3 (09:00→19:49)
[2019-05-23] MEDS: AmLODIPine BESYLATE 10 MG TABLET PO SCH ×2 (09:00→09:37)
[2019-05-23] MEDS: INSULIN GLARGINE,HUM.REC.ANLOG 100 UNITS/ML SQ SCH ×2 (09:33→19:44)
[2019-05-23] MEDS: HEPARIN SODIUM,PORCINE 5,000 UNITS/ML VIAL SQ SCH ×2 (09:34→19:49)
[2019-05-23] MEDS: BACLOFEN 10 MG TABLET PO SCH ×2 (09:35→19:44)
[2019-05-23] MEDS: GABAPENTIN 300 MG CAPSULE PO SCH (09:35)
[2019-05-23] MEDS: MULTIVITAMINS WITH MINERALS, THERAPEUTIC TABLET PO SCH (09:35)
[2019-05-23] MEDS: FLUTICASONE PROPIONATE 50 MCG/SPRAY 16 GM NASAL SPRAY NASAL SCH ×2 (09:35→19:48)
[2019-05-23] MEDS: MORPHINE SULFATE 15 MG ER TABLET PO SCH ×2 (09:36→19:45)
[2019-05-23] MEDS: FERROUS SULFATE 325 MG EC TABLET PO SCH ×2 (09:36→17:54)
[2019-05-23] MEDS: LinaGLIPtin 5 MG TABLET PO SCH (09:36)
[2019-05-23] MEDS: NITROFURANTOIN MACROCRYSTAL 100 MG CAPSULE PO SCH (09:36)
[2019-05-23] MEDS: DUTASTERIDE 0.5 MG CAPSULE PO SCH (09:36)
[2019-05-23] MEDS: RANITIDINE HCL 150 MG TABLET PO SCH (09:36)
[2019-05-23] MEDS: ZINC SULFATE 220 MG CAPSULE PO SCH ×2 (09:36→19:46)
[2019-05-23] MEDS: ASCORBIC ACID 500 MG TABLET PO SCH (09:36)
[2019-05-23] MEDS: TAMSULOSIN HCL 0.4 MG CAPSULE PO SCH (09:37)
[2019-05-23] MEDS: ASPIRIN 81 MG EC TABLET PO SCH (09:37)
[2019-05-23] MEDS: BusPIRone HCL 15 MG TABLET PO SCH ×2 (09:37→19:46)
[2019-05-23] MEDS: FOLIC ACID 1 MG TABLET PO SCH (09:37)
[2019-05-23 12:21] VITALS: BP 122/58
[2019-05-23 16:20] VITALS: BP 119/62
[2019-05-23 19:46] VITALS: BP 132/66
[2019-05-23] MEDS: ATORVASTATIN CALCIUM 40 MG TABLET PO SCH (19:46)
[2019-05-28 20:09] LABS: GLUCOMETER DEV NAME(LOC) 4E.2; GLUCOSE,POINT OF CARE 262 MG/DL (70-110)
[2019-05-28 20:09] LABS: GLUCOMETER DEV NAME(LOC) 4E.2; GLUCOSE,POINT OF CARE 164 MG/DL (70-110)
[2019-05-28 20:09] LABS: GLUCOMETER DEV NAME(LOC) 4E.2; GLUCOSE,POINT OF CARE 235 MG/DL (70-110)
[2019-05-28 20:09] LABS: GLUCOMETER DEV NAME(LOC) 4E.2; GLUCOSE,POINT OF CARE 272 MG/DL (70-110)
[2019-05-28 20:09] LABS: GLUCOMETER DEV NAME(LOC) 4E.2; GLUCOSE,POINT OF CARE 169 MG/DL (70-110)
[2019-05-28 20:09] LABS: GLUCOMETER DEV NAME(LOC) 4E.2; GLUCOSE,POINT OF CARE 255 MG/DL (70-110)
[2019-05-28 20:09] LABS: GLUCOMETER DEV NAME(LOC) 4E.2; GLUCOSE,POINT OF CARE 242 MG/DL (70-110)
[2019-05-28 20:10] LABS: GLUCOMETER DEV NAME(LOC) 4E.2; GLUCOSE,POINT OF CARE 339 MG/DL (70-110)
[2019-05-28 20:10] LABS: GLUCOMETER DEV NAME(LOC) 4E.2; GLUCOSE,POINT OF CARE 298 MG/DL (70-110)
[2019-05-28 20:10] LABS: GLUCOMETER DEV NAME(LOC) 4E.2; GLUCOSE,POINT OF CARE 270 MG/DL (70-110)
[2019-05-28 20:10] LABS: GLUCOMETER DEV NAME(LOC) 4E.2; GLUCOSE,POINT OF CARE 294 MG/DL (70-110)
[2019-05-28 20:10] LABS: GLUCOMETER DEV NAME(LOC) 4E.2; GLUCOSE,POINT OF CARE 257 MG/DL (70-110)
[2019-05-28 20:10] LABS: GLUCOMETER DEV NAME(LOC) 4E.2; GLUCOSE,POINT OF CARE 287 MG/DL (70-110)
[2019-05-28 20:10] LABS: GLUCOMETER DEV NAME(LOC) 4E.2; GLUCOSE,POINT OF CARE 225 MG/DL (70-110)
[2019-05-28 20:11] LABS: GLUCOMETER DEV NAME(LOC) 4E.2; GLUCOSE,POINT OF CARE 277 MG/DL (70-110)
[2019-05-28 20:11] LABS: GLUCOMETER DEV NAME(LOC) 4E.2; GLUCOSE,POINT OF CARE 251 MG/DL (70-110)
[2019-05-28 20:11] LABS: GLUCOMETER DEV NAME(LOC) 4E.2; GLUCOSE,POINT OF CARE 257 MG/DL (70-110)
[2019-05-28 20:11] LABS: GLUCOMETER DEV NAME(LOC) 4E.2; GLUCOSE,POINT OF CARE 164 MG/DL (70-110)
[2019-05-28 20:11] LABS: GLUCOMETER DEV NAME(LOC) 4E.2; GLUCOSE,POINT OF CARE 193 MG/DL (70-110)
[2019-05-28 20:11] LABS: GLUCOMETER DEV NAME(LOC) 4E.2; GLUCOSE,POINT OF CARE 287 MG/DL (70-110)
[2019-05-28 20:11] LABS: GLUCOMETER DEV NAME(LOC) 4E.2; GLUCOSE,POINT OF CARE 199 MG/DL (70-110)
[2019-05-28 20:11] LABS: GLUCOMETER DEV NAME(LOC) 4E.2; GLUCOSE,POINT OF CARE 207 MG/DL (70-110)
== END 2019-05-23 20:35 | disposition home or self-care (01) | DRG 907 ==
LOC: 6S 10:25 → 4E 17:25
PROVIDERS: ADMIT Surgery Plastic and Reconstructive Surgery; ATTEND Surgery Plastic and Reconstructive Surgery
PROC: 0KBR0ZZ Excision of Left Upper Leg Muscle, Open Approach (ICD-10-PCS; 2019-05-17)
PROC: 0QB10ZX Excision of Sacrum, Open Approach, Diagnostic (ICD-10-PCS; 2019-05-17)
PROC: 0KXP0ZZ Transfer Left Hip Muscle, Open Approach (ICD-10-PCS; 2019-05-17)
PROC: 0KXN0ZZ Transfer Right Hip Muscle, Open Approach (ICD-10-PCS; 2019-05-17)
PROC: 0JXM0ZZ Transfer Left Upper Leg Subcutaneous Tissue and Fascia, Open Approach (ICD-10-PCS; 2019-05-17)
PROC: 0QB10ZZ Excision of Sacrum, Open Approach (ICD-10-PCS; principal; 2019-05-17 13:15)
PROC: 30233N1 Transfusion of Nonautologous Red Blood Cells into Peripheral Vein, Percutaneous Approach (ICD-10-PCS; 2019-05-21)
DX: T81.31XA Disruption of external operation (surgical) wound, not elsewhere classified, initial encounter (principal); E43 Unspecified severe protein-calorie malnutrition; L89.154 Pressure ulcer of sacral region, stage 4; L89.893 Pressure ulcer of other site, stage 3; G82.20 Paraplegia, unspecified; E11.40 Type 2 diabetes mellitus with diabetic neuropathy, unspecified; N40.0 Benign prostatic hyperplasia without lower urinary tract symptoms; E78.5 Hyperlipidemia, unspecified; F32.9 Major depressive disorder, single episode, unspecified; M19.90 Unspecified osteoarthritis, unspecified site; Y83.8 Other surgical procedures as the cause of abnormal reaction of the patient, or of later complication, without mention of misadventure at the time of the procedure; I10 Essential (primary) hypertension; E78.00 Pure hypercholesterolemia, unspecified; I25.10 Atherosclerotic heart disease of native coronary artery without angina pectoris; Z82.49 Family history of ischemic heart disease and other diseases of the circulatory system; Z83.3 Family history of diabetes mellitus; Z86.73 Personal history of transient ischemic attack (TIA), and cerebral infarction without residual deficits; Z91.19 Patient's noncompliance with other medical treatment and regimen; Z95.1 Presence of aortocoronary bypass graft; Z79.82 Long term (current) use of aspirin; Y92.89 Other specified places as the place of occurrence of the external cause; Z68.27 Body mass index [BMI] 27.0-27.9, adult
CPT/HCPCS: 83036; 86850; 86900; 86901; 86920; 87070; 87081; 87205; 88304; 88307; 93005; G0378; J0690; J1644; J1815; J2270; J2405; J2543; J2704; J3010; J3490; J7040; J7050; J7120; P9016

== ENCOUNTER → 2019-05-31 | Outpatient (CLI) | payer MEDICARE, OTHER ==
[~2019-05-31] MED LIST changes: -ACET-2247 PR; +ACET650S27 PR; +AMLO10TA7 PO; +ASPI-1182 PO; -ATOR20TA86 PO; +ATOR40TA28 PO; +BACL10TA PO; +BUSP15 PO; +DUTA.5 PO; +FERR-89 PO; +FLUT16H NASAL; +FOLI1 PO; +FURO20 PO; +GABA-531 PO; +LIDOCAINE 4% 50 ML SOLUTION TP ONE; +LINA5TAB PO; +LOSA25TA41 PO; +METF-445 PO; +NITR100C11 PO; +RANI150T7 PO; +SPIR25 PO; +TAMS-1 PO
[2019-05-31 08:44] VITALS: BP 136/84
== END | disposition home or self-care (01) ==
LOC: HBOWC 08:30
PROVIDERS: ATTEND Surgery Plastic and Reconstructive Surgery
DX: T86.828 Other complications of skin graft (allograft) (autograft) (principal); E11.622 Type 2 diabetes mellitus with other skin ulcer; L89.153 Pressure ulcer of sacral region, stage 3; L98.495 Non-pressure chronic ulcer of skin of other sites with muscle involvement without evidence of necrosis; L89.323 Pressure ulcer of left buttock, stage 3; L98.412 Non-pressure chronic ulcer of buttock with fat layer exposed; E11.621 Type 2 diabetes mellitus with foot ulcer; L97.511 Non-pressure chronic ulcer of other part of right foot limited to breakdown of skin; S91.201D Unspecified open wound of right great toe with damage to nail, subsequent encounter; G82.20 Paraplegia, unspecified; M62.561 Muscle wasting and atrophy, not elsewhere classified, right lower leg; I25.10 Atherosclerotic heart disease of native coronary artery without angina pectoris; E78.00 Pure hypercholesterolemia, unspecified; M19.90 Unspecified osteoarthritis, unspecified site; E66.9 Obesity, unspecified; F32.9 Major depressive disorder, single episode, unspecified; F11.20 Opioid dependence, uncomplicated; Z68.29 Body mass index [BMI] 29.0-29.9, adult; Z95.1 Presence of aortocoronary bypass graft; Z79.4 Long term (current) use of insulin; Z79.82 Long term (current) use of aspirin; X58.XXXD Exposure to other specified factors, subsequent encounter; Y83.2 Surgical operation with anastomosis, bypass or graft as the cause of abnormal reaction of the patient, or of later complication, without mention of misadventure at the time of the procedure
CPT/HCPCS: 97605

== ENCOUNTER → 2019-06-07 | Outpatient (CLI) | payer MEDICARE, OTHER ==
[~2019-06-07] MED LIST changes: +AMIN30LI28 PO; -LIDOCAINE 4% 50 ML SOLUTION TP ONE
[2019-06-07 08:36] VITALS: BP 135/71
== END | disposition home or self-care (01) ==
LOC: HBOWC 07:46
PROVIDERS: ATTEND Surgery Plastic and Reconstructive Surgery
DX: T86.828 Other complications of skin graft (allograft) (autograft) (principal); E11.622 Type 2 diabetes mellitus with other skin ulcer; L89.153 Pressure ulcer of sacral region, stage 3; L98.495 Non-pressure chronic ulcer of skin of other sites with muscle involvement without evidence of necrosis; L89.323 Pressure ulcer of left buttock, stage 3; L98.411 Non-pressure chronic ulcer of buttock limited to breakdown of skin; E11.621 Type 2 diabetes mellitus with foot ulcer; L97.511 Non-pressure chronic ulcer of other part of right foot limited to breakdown of skin; G82.20 Paraplegia, unspecified; M62.561 Muscle wasting and atrophy, not elsewhere classified, right lower leg; I25.10 Atherosclerotic heart disease of native coronary artery without angina pectoris; E78.00 Pure hypercholesterolemia, unspecified; E78.5 Hyperlipidemia, unspecified; M19.90 Unspecified osteoarthritis, unspecified site; E66.9 Obesity, unspecified; F32.9 Major depressive disorder, single episode, unspecified; F11.20 Opioid dependence, uncomplicated; E11.40 Type 2 diabetes mellitus with diabetic neuropathy, unspecified; E46 Unspecified protein-calorie malnutrition; E11.65 Type 2 diabetes mellitus with hyperglycemia; G89.29 Other chronic pain; Z86.73 Personal history of transient ischemic attack (TIA), and cerebral infarction without residual deficits; Z79.84 Long term (current) use of oral hypoglycemic drugs; Z79.899 Other long term (current) drug therapy; Z95.1 Presence of aortocoronary bypass graft; Z79.4 Long term (current) use of insulin; Z79.82 Long term (current) use of aspirin; Z68.29 Body mass index [BMI] 29.0-29.9, adult; Y83.2 Surgical operation with anastomosis, bypass or graft as the cause of abnormal reaction of the patient, or of later complication, without mention of misadventure at the time of the procedure

== ENCOUNTER → 2019-06-14 | Outpatient (CLI) | payer MEDICARE, OTHER ==
[~2019-06-14] MED LIST changes: -ACET-2247 PO; -ACET650S27 PR; -BACTDSB PO; -BISA10SU11 PR; +LIDOCAINE 4% 50 ML SOLUTION TP ONE; -LINA5TAB PO; -METF-445 PO; -MOM30 PO; -MULT-248 PO; -SPIR25 PO; -TRAZ-252 PO; -ZINC220 PO
[2019-06-14 11:34] VITALS: BP 135/66
== END | disposition home or self-care (01) ==
LOC: HBOWC 10:33
PROVIDERS: ATTEND Surgery Plastic and Reconstructive Surgery
DX: T86.828 Other complications of skin graft (allograft) (autograft) (principal); E11.622 Type 2 diabetes mellitus with other skin ulcer; L89.153 Pressure ulcer of sacral region, stage 3; L98.491 Non-pressure chronic ulcer of skin of other sites limited to breakdown of skin; L89.323 Pressure ulcer of left buttock, stage 3; L98.411 Non-pressure chronic ulcer of buttock limited to breakdown of skin; E11.621 Type 2 diabetes mellitus with foot ulcer; L97.511 Non-pressure chronic ulcer of other part of right foot limited to breakdown of skin; G82.20 Paraplegia, unspecified; M62.561 Muscle wasting and atrophy, not elsewhere classified, right lower leg; M62.562 Muscle wasting and atrophy, not elsewhere classified, left lower leg; I25.10 Atherosclerotic heart disease of native coronary artery without angina pectoris; E78.00 Pure hypercholesterolemia, unspecified; M19.90 Unspecified osteoarthritis, unspecified site; E66.9 Obesity, unspecified; F32.9 Major depressive disorder, single episode, unspecified; F11.20 Opioid dependence, uncomplicated; E11.40 Type 2 diabetes mellitus with diabetic neuropathy, unspecified; E46 Unspecified protein-calorie malnutrition; E11.65 Type 2 diabetes mellitus with hyperglycemia; G89.29 Other chronic pain; Z86.73 Personal history of transient ischemic attack (TIA), and cerebral infarction without residual deficits; Z79.84 Long term (current) use of oral hypoglycemic drugs; Z79.82 Long term (current) use of aspirin; Z68.29 Body mass index [BMI] 29.0-29.9, adult; Y83.2 Surgical operation with anastomosis, bypass or graft as the cause of abnormal reaction of the patient, or of later complication, without mention of misadventure at the time of the procedure; Z79.899 Other long term (current) drug therapy; Z79.4 Long term (current) use of insulin; Z95.1 Presence of aortocoronary bypass graft; E11.69 Type 2 diabetes mellitus with other specified complication; M86.8X8 Other osteomyelitis, other site; I11.0 Hypertensive heart disease with heart failure; I50.9 Heart failure, unspecified; J44.9 Chronic obstructive pulmonary disease, unspecified

== ENCOUNTER → 2019-06-21 | Outpatient (CLI) | payer MEDICARE, OTHER ==
[~2019-06-21] MED LIST changes: -LIDOCAINE 4% 50 ML SOLUTION TP ONE; +NITR-103 PO; -NITR100C11 PO
[2019-06-21 10:00] VITALS: BP 109/59
== END | disposition home or self-care (01) ==
LOC: HBOWC 10:12
PROVIDERS: ATTEND Surgery Plastic and Reconstructive Surgery
DX: T86.828 Other complications of skin graft (allograft) (autograft) (principal); E11.622 Type 2 diabetes mellitus with other skin ulcer; L89.153 Pressure ulcer of sacral region, stage 3; L98.491 Non-pressure chronic ulcer of skin of other sites limited to breakdown of skin; L89.323 Pressure ulcer of left buttock, stage 3; L98.411 Non-pressure chronic ulcer of buttock limited to breakdown of skin; E11.621 Type 2 diabetes mellitus with foot ulcer; L97.511 Non-pressure chronic ulcer of other part of right foot limited to breakdown of skin; G82.20 Paraplegia, unspecified; M62.561 Muscle wasting and atrophy, not elsewhere classified, right lower leg; M62.562 Muscle wasting and atrophy, not elsewhere classified, left lower leg; I25.10 Atherosclerotic heart disease of native coronary artery without angina pectoris; E78.00 Pure hypercholesterolemia, unspecified; M19.90 Unspecified osteoarthritis, unspecified site; E66.9 Obesity, unspecified; F32.9 Major depressive disorder, single episode, unspecified; E11.40 Type 2 diabetes mellitus with diabetic neuropathy, unspecified; E46 Unspecified protein-calorie malnutrition; E11.65 Type 2 diabetes mellitus with hyperglycemia; G89.29 Other chronic pain; E11.69 Type 2 diabetes mellitus with other specified complication; M86.8X8 Other osteomyelitis, other site; F11.20 Opioid dependence, uncomplicated; J44.9 Chronic obstructive pulmonary disease, unspecified; I11.0 Hypertensive heart disease with heart failure; I50.9 Heart failure, unspecified; Z86.73 Personal history of transient ischemic attack (TIA), and cerebral infarction without residual deficits; Z79.84 Long term (current) use of oral hypoglycemic drugs; Z79.82 Long term (current) use of aspirin; Z68.29 Body mass index [BMI] 29.0-29.9, adult; Y83.2 Surgical operation with anastomosis, bypass or graft as the cause of abnormal reaction of the patient, or of later complication, without mention of misadventure at the time of the procedure; Z79.4 Long term (current) use of insulin; Z95.1 Presence of aortocoronary bypass graft

== ENCOUNTER → 2019-07-19 | Outpatient (CLI) | payer MEDICARE, OTHER | END | disposition home or self-care (01) | LOC: HBOWC 09:34 | PROVIDERS: ATTEND Surgery Plastic and Reconstructive Surgery | DX: T81.89XD Other complications of procedures, not elsewhere classified, subsequent encounter (principal); G82.20 Paraplegia, unspecified; M62.561 Muscle wasting and atrophy, not elsewhere classified, right lower leg; M62.562 Muscle wasting and atrophy, not elsewhere classified, left lower leg; I25.10 Atherosclerotic heart disease of native coronary artery without angina pectoris; E78.00 Pure hypercholesterolemia, unspecified; M19.90 Unspecified osteoarthritis, unspecified site; E66.9 Obesity, unspecified; F32.9 Major depressive disorder, single episode, unspecified; E11.40 Type 2 diabetes mellitus with diabetic neuropathy, unspecified; E11.65 Type 2 diabetes mellitus with hyperglycemia; E46 Unspecified protein-calorie malnutrition; G89.29 Other chronic pain; E11.69 Type 2 diabetes mellitus with other specified complication; M86.8X8 Other osteomyelitis, other site; F11.20 Opioid dependence, uncomplicated; J44.9 Chronic obstructive pulmonary disease, unspecified; I11.0 Hypertensive heart disease with heart failure; I50.9 Heart failure, unspecified; K21.9 Gastro-esophageal reflux disease without esophagitis; E78.5 Hyperlipidemia, unspecified; Z86.73 Personal history of transient ischemic attack (TIA), and cerebral infarction without residual deficits; Z79.84 Long term (current) use of oral hypoglycemic drugs; Z79.82 Long term (current) use of aspirin; Z79.4 Long term (current) use of insulin; Z95.1 Presence of aortocoronary bypass graft; Z68.27 Body mass index [BMI] 27.0-27.9, adult; Z79.899 Other long term (current) drug therapy; Y83.8 Other surgical procedures as the cause of abnormal reaction of the patient, or of later complication, without mention of misadventure at the time of the procedure | CPT/HCPCS: 11043; 97605 ==